=== PATIENT | female | born 1955 | race Caucasian/White ===

== ENCOUNTER → 2020-04-17 16:35 | Outpatient (CLI) | payer BC, SELFPAY ==
--- NOTE | ~2020-04-17 | MM_ITS ---
EXAMINATION: MM screening kristen BI w ashlie HISTORY: Screening mammogram TECHNIQUE: Craniocaudal and mediolateral oblique 3-D tomosynthesis images were obtained and synthetic 2-D images were generated. CAD analysis was submitted and interpreted. COMPARISON: 07/26/2014 bilateral digital screening mammogram BREAST PARENCHYMAL COMPOSITION: The breasts are almost entirely fatty. FINDINGS: A focal area of architectural distortion is noted posteriorly in the outer mid left breast (craniocaudal Tomosynthesis image 31/84 and MLO Tomosynthesis image 22/91). Diagnostic left mammogram is recommended, with sonographic correlation. There is a 3 mm rounded opacity at mid depth in the lower mid right breast near 6:00 position (cranio caudal Tomosynthesis image 15/80 and MLO Tomosynthesis image 16/85). Diagnostic right mammogram and t argeted right breast ultrasound examination are recommended. IMPRESSION: 1. 3 mm right breast mass near 6:00 position and outer mid left breast architectural distortion 2. Bilateral diagnostic mammography and ultrasound examination are recommended. BI-RADS Category 0: Incomplete: Needs additional imaging evaluation. Reviewed, dictated and finalized at location B. CHISE SPECIALIST IMPRESSION: 1. 3 mm right breast mass near 6:00 position and outer mid left breast architec tural distortion 2. Bilateral diagnostic mammography and ultrasound examination are recommended. BI-RADS Category 0: Incomplete: Needs additional imaging evaluation.
== END ==
PROVIDERS: PCP Family Medicine; Visit Provider Nurse Practitioner Obstetrics & Gynecology
DX: Z12.31 Encounter for screening mammogram for malignant neoplasm of breast (principal); R92.8 Other abnormal and inconclusive findings on diagnostic imaging of breast
CPT/HCPCS: 77063; 77067

== ENCOUNTER → 2020-05-14 09:49 | Outpatient (CLI) | payer BC, SELFPAY ==
--- NOTE | ~2020-05-14 | MMUS_ITS ---
EXAMINATION: MM diagnostic mammo BI, US breast BI limited HISTORY: Right breast mass and left breast architectural distortion on screening mammogram TECHNIQUE: Additional 3-D tomosynthesis images of the breasts were performed and synthetic 2-D images were generated. CAD analysis was submitted and interpreted. High resolution limited bilateral breast ultrasound was performed. COMPARISON: 04/17/2020, 07/26/2014, 09/09/2012 FINDINGS: MAMMOGRAPHIC FINDINGS: Left breast: There is persistent architectural distortion in the middle/posterior third of the lower- outer breast at the 3:00 location 7 cm from the nipple best appreciated on craniocaudal tomosynthesis image 28/85. Right breast: There is a 3 mm round equal density circumscribed mass in the middle third of the lower -outer breast at the 7:00 location 4 cm from the nipple. ULTRASOUND: Left breast: No sonographic correlate is identified for the left breast architectural distortion Right breast: There is a 1.8 x 1.1 cm irregular, parallel, hypoechoic mass with posterior acoustic sh adowing and internal vascularity at the 7:00 location 3 cm from the nipple. In addition there is a 3 mm cyst corresponding to the mammographically detected mass. IMPRESSION: 1. Suspicious sonographically detected right breast mass, ultrasound-guided biopsy recommended. 2. Left breast architectural distortion, tomosynthesis guided biopsy is recommended. BI-RADS category 4, suspicious findings. Reviewed, dictated and finalized at location A. ING CLERK IMPRESSION: 1. Suspicious sonographically detected right breast mass, ultrasound-guided bio psy recommended. 2. Left breast architectural distortion, tomosynthesis guided biopsy is recomme nded. BI-RADS category 4, suspicious findings.
== END ==
PROVIDERS: PCP Family Medicine; Visit Provider Nurse Practitioner Obstetrics & Gynecology
DX: N63.25 Unspecified lump in the left breast, overlapping quadrants (principal); N63.15 Unspecified lump in the right breast, overlapping quadrants
CPT/HCPCS: 76642; 77066

== ENCOUNTER 2020-05-14 14:30 | Outpatient (RCR) | payer BC, SELFPAY ==
--- NOTE | 2020-04-18 16:21 | PTOPEVAL ---
INITIAL PHYSICAL THERAPY EVALUATION and PLAN OF CARE Thank you for referring Mireya Jackson to [facility].? Mireya is scheduled to be seen for physical therapy? 1x/week for 6 weeks. Please review, sign, date and return this plan of care GUERO. I agree with and certify that the following plan of care is medically necessary. Referring Physician Date Admitting Provider: Attending Provider: Yudith Bernal, FINAL EXPENSE AGENT Referring Provider: *PT Outpatient Evaluation Start: 04/18/20 15:03 Freq: Status: Active Protocol: Document 04/18/20 15:00 ROBI (Rec: 04/18/20 16:20 ROBI [id number]) Therapy Assessment Status Assessment Status Assessment Status Evaluation Outpatient Past Medical History Past Medical History Source of Past Medical History Patient Musculoskeletal History Hx Fractures Yes: ORIF L humerus Reproductive History Hx Tubal Ligation Yes Evaluation Information Problem Diagnosis cystocele, rectocele Onset last couple of months Subjective Information Mireya reports feeling Query Text:As Reported By Patient/ increase protruding sensation Family in the vaginal region - that comes and goes - usually worse in standing. Prior Level of Function Activity Level (Last 3 Months) Occupation retired - manager mall Hand Dominance Right Medications Home Meds (Include: OTC, RX, Vitamins, just takes vitamins, calcium Herbals, Dose, Route,and Frequency) Query Text:Home Med Entries Will No Longer Recall From Past Visits. Home Meds Must Be Re-entered With Each Visit. Pain Assessment Timing of Pain Assessment Timing of Pain Assessment Assessment Self Report Self Report Pain Level 0 Pain Score Pain Score 0: Self Report Cervical and Lumbar ROM Lumbar ROM Lumbar ROM WNL Lumbar Comments equal SIJ mobility with trunk flexion Lower Extremity Range of Motion General Lower Extremity Range of Motion Reason Not Measured WNL/Left,WNL/Right Gross Lower Extremity Range of Motion for bilat hip ROM Comments Lower Extremity Muscle Strength Testing General Lower Extremity Strength Reason Not Measured WNL/Left,WNL/Right Gross Lower Extremity Strength for bilat hip strength testing in sitting Posture Posture Standing Position Posture Evaluation View posterior, anterior, lateral Head/C-Spine Posture Forward Head Thoracic Spine Posture Neutral Lumbar Spine Posture Neutral Scapula Posture (L) Neutral,(R) Neutral Pelvis Posture Neutral Weight Distribution
--- NOTE | 2020-05-07 09:21 | PCPTNOTE ---
Patient called & cancelled scheduled appointment this date due to having to watch grandchildren.
--- NOTE | 2020-05-21 09:34 | PCPTNOTE ---
Patient called & cancelled scheduled appointment this date due to having another appointment.
--- NOTE | 2020-05-28 09:18 | PCPTNOTE ---
Patient called & cancelled scheduled appointment this date due to decreased insurance coverage - unable to afford PT.
--- NOTE | 2020-05-28 09:19 | PCPTNOTE ---
PHYSICAL THERAPY DISCHARGE SUMMARY Admitting Provider: Attending Provider: Yudith Bernal, HANDLE BENDER Patient:Mireya Jackson Date of :1955 Mireya has had to cancel her remaining appointment due to decreased insurance coverage. Mireya?s initial visit was on 04/18/2020 15:00 and shehad a total of 3 visits. A follow up phone call was made this date to see how she was doing and to review and update her HEP. She has made good progress towards goals set and she was encouraged to continue with her HEP on a regular basis. She will be discharged from physical therapy at this time. Thank you for referring Mireya to [facility]. Please review, sign, date and return this discharge summary GUERO. I have been updated about Mireya's current status and I agree with discharge from the above service at this time. Referring Physician Date
== END 2020-07-08 08:26 | disposition home or self-care (01) ==
LOC: ANHHIPT 14:30
PROVIDERS: PCP Family Medicine; Visit Provider Nurse Practitioner Obstetrics & Gynecology
DX: N81.12 Cystocele, lateral (principal); N81.6 Rectocele
CPT/HCPCS: 97110; 97161

== ENCOUNTER 2020-07-01 10:36 | Outpatient (CLI) | payer BC, SELFPAY ==
--- NOTE | ~2020-07-01 | US_ITS ---
EXAMINATION: US breast RT limited HISTORY: Patient presents for ultrasound-guided biopsy of a right breast mass. TECHNIQUE: Limited right breast ultrasound is performed. FINDINGS: With real-time scanning, no definite right breast mass is identified for targeting with ult rasound guided biopsy. The area described on recent diagnostic evaluation could reflect shadowing lig amentous structures. This was discussed with the patient and short-term interval follow-up was agreed upon. IMPRESSION: 1. Probably benign right breast findings. Follow-up right diagnostic mammogram and ultrasound in six months are recommended. 2. Patient was also advised that tomosynthesis guided left breast biopsy remains outstanding and shou ld still be performed. BI-RADS category 3, probably benign findings. Reviewed, dictated and finalized at location A. SONIC ENGINEER IMPRESSION: 1. Probably benign right breast findings. Follow-up right diagnostic mammogram and ultrasound in six months are recommended. 2. Patient was also advised that tomosynthesis guided left breast biopsy remain s outstanding and should still be performed. BI-RADS category 3, probably benign findings.
== END 2020-07-01 10:37 | disposition home or self-care (01) ==
PROVIDERS: PCP Family Medicine
DX: R92.8 Other abnormal and inconclusive findings on diagnostic imaging of breast (principal)
CPT/HCPCS: 76642

== ENCOUNTER → 2021-06-01 15:08 | Outpatient (CLI) | payer MEDICARE, SELFPAY ==
--- NOTE | ~2021-06-01 | US_ITS ---
EXAMINATION: US thyroid EXAM DATE: 06/01/2021 15:35 INDICATION: E04.1 - Nontoxic single thyroid nodule. TECHNIQUE: Multiple grayscale and Doppler images of the thyroid were obtained (by a technologist who performed the scan) and subsequently reviewed. Individual nodules and recommendations may be reporte d in accordance with TI-RADS system as designated by the 2017 ACR White Paper TI-RADS committee. The re is no prior study for comparison. FINDINGS: The right thyroid lobe measures 4.3 x 1.2 x 1.3 cm, the left measuring 3.9 x 1.6 x 1.0 cm. Mildly dif fusely heterogeneous thyroid echogenicity. There is left thyroid lobe nodule, solid component measured at 1.2 x 1.3 x 1.1 cm, predominantly rachelle d (2 points), hypoechoic (2 points), taller than wide (3 points), smooth well defined margin, without echogenic foci, category TR5 for this nodule. There is a 3 mm cyst in the right thyroid lobe. IMPRESSION: Left thyroid lobe category TR 5 nodule, large enough to recommend ultrasound-guided FNA. Reviewed, dictated and finalized at location A. NAL CLERK IMPRESSION: Left thyroid lobe category TR 5 nodule, large enough to recommend u ltrasound-guided FNA.
== END ==
PROVIDERS: PCP Family Medicine; Visit Provider Nurse Practitioner Family
DX: E04.1 Nontoxic single thyroid nodule (principal)
CPT/HCPCS: 76536

== ENCOUNTER 2021-06-12 12:52 | Outpatient (CLI) | payer MEDICARE, SELFPAY ==
--- NOTE | ~2021-06-12 | US_ITS ---
EXAMINATION: US FNA w image guidance DATE: 06/12/2021 14:13 INDICATION: Left thyroid nodule TECHNIQUE: A time-out was performed to verify the patient's name, date of , and procedure to be performed . The procedure and its benefits and risks were discussed with the patient. Risks specifically discus sed included bleeding and infection. The patient understood the risks and agreed to proceed. The neck was prepped and draped in the usual sterile manner. 3 mL 1% lidocaine was used for local anesthesia . 6 passes were made with a 25G needle into the lesion. Appropriate needle location was documented with continuous sonographic guidance. The specimens were passed to the cytotechnologist supervisor in the room. A sterile bandage was applied. There were no immediate complications. FINDINGS: Grayscale ultrasound images demonstrate biopsy needles advanced into a 1.8 cm TI RADS 5 left thyroid nodule. IMPRESSION: 1. Successful ultrasound-guided fine needle aspiration of the 1.8 cm TI RADS 5 left thyroid nodule o f concern. Reviewed, dictated and finalized at location A. RVISOR MATRIX IMPRESSION: 1. Successful ultrasound-guided fine needle aspiration of the 1.8 cm TI RADS 5 left thyroid nodule of concern.
== END 2021-06-12 12:53 | disposition home or self-care (01) ==
LOC: ANHIMG 12:53
PROVIDERS: PCP Family Medicine; Visit Provider Otolaryngology
DX: E04.1 Nontoxic single thyroid nodule (principal)
CPT/HCPCS: 10005; 88173; 88305

== ENCOUNTER → 2021-11-18 13:25 | Outpatient (CLI) | payer MEDICARE, SELFPAY ==
--- NOTE | ~2021-11-18 | XR_ITS ---
EXAMINATION: XR lumbar spine min 4V DATE: 11/18/2021 13:56 INDICATION: Low back pain TECHNIQUE: Anteroposterior, lateral, and bilateral oblique views of the lumbar spine, and cone-down l ateral view of the lumbosacral junction were obtained. COMPARISON: None. FINDINGS: Bone alignment is normal. There is no fracture. The vertebral body heights and intervertebr al disc spaces are maintained. Small degenerative osteophytes project from the anterior endplates of multiple vertebral bodies. There is moderate facet osteoarthritis of the lower lumbar spine. IMPRESSION: 1. Mild lumbar spondylosis. Reviewed, dictated and finalized at location A. IMPRESSION: 1. Mild lumbar spondylosis.
--- NOTE | ~2021-11-18 | XR_ITS ---
XR hip RT min 3V w AP pelvis DATE: 11/18/2021 13:56 INDICATION: Right hip pain, chronic TECHNIQUE: AP pelvis. AP and lateral views of right hip COMPARISON: None FINDINGS: Moderate right hip osteoid arthritis including joint space narrowing. Mild left hip osteoar thritic arthritis.. No fracture or dislocation, avascular necrosis or bone destruction of the right hip. The pubic symphysis and sacroiliac joints are intact. No pelvic fracture or bone destruction. IMPRESSION: Bilateral hip osteoarthritis, moderate on the right, mild on the left Reviewed, dictated and finalized at location A. IMPRESSION: Bilateral hip osteoarthritis, moderate on the right, mild on the le ft
== END ==
PROVIDERS: PCP Family Medicine; Visit Provider Family Medicine
DX: M54.41 Lumbago with sciatica, right side (principal); G89.29 Other chronic pain; M47.896 Other spondylosis, lumbar region; M16.0 Bilateral primary osteoarthritis of hip
CPT/HCPCS: 72110; 73502

== ENCOUNTER 2021-11-24 08:21 | Outpatient (CLI) | payer MEDICARE, SELFPAY ==
--- NOTE | 2021-11-24 08:38 | ECHO_ITS ---
Patient Info Name: Mireya Jackson Age: 66 years : 1955 Gender: Female Ht: 66 in Wt: 210 lbs BSA: 2.14 m2 HR: 61 bpm BP: 138 / 86 mmHg Technical Quality: Fair Exam Date: 11/24/2021 9:17 AM Exam Location: [facility] Patient Status: Outpatient Admit Date: 11/24/2021 Staff Ordering Physician: Lv Callejas MD Rubber Goods Finisher: Roxanne Min RDCS Attending Provider: Lv Callejas MD Referring Physician: Britta FLOREZ; Exam Type: CA echo doppler color flow Study Info Indications R07.89 - Other chest pain Complete two-dimensional, color flow and Doppler transthoracic echocardiogram is performed. Summary 1. Complete two-dimensional, color flow and Doppler transthoracic echocardiogram is performed. 2. Left ventricular chamber dimension is normal. 3. Left ventricular systolic function is normal, estimated at 60-65%. 4. The left ventricular diastolic function is abnormal. 5. E/e' 10 is mildly elevated. 6. Global longitudinal strain is normal at -21.0%. 7. Left atrial chamber dimension is mildly enlarged. 8. No pulmonary hypertension, estimated pulmonary arterial systolic pressure is 30 mmHg. Left Ventricle E/e' 10 is mildly elevated. Global longitudinal strain is normal at -21.0%. Left ventricular chamber dimension is normal. Left ventricular systolic function is normal, estimated at 60-65%. The left ventricular diastolic function is abnormal. Right Ventricle Right ventricular chamber dimension is normal. Right ventricular systolic function is normal. Left Atria Left atrial chamber dimension is mildly enlarged. Right Atria Right atrial chamber dimension is normal. Aortic Valve The aortic valve is trileaflet. There is no aortic valve stenosis. There is no aortic valve regurgitation. Pulmonic Valve There is no pulmonic regurgitation. Mitral Valve There is no mitral valve stenosis. There is no mitral valve regurgitation. Tricuspid Valve There is no tricuspid valve regurgitation. No pulmonary hypertension, estimated pulmonary arterial systolic pressure is 30 mmHg. Pericardium/Pleural There is no pericardial effusion. Inferior Vena Cava Normal inferior vena cava with >50% collapse upon inspiration consistent with normal right atrial pressure, 5 mmHg. Aorta The aortic root size at the sinus of Valsalva is normal. Left Ventricular Outflow Tract Name Value Normal LVOT 2D LVOT Diameter 2.0 cm LVOT Doppler LVOT Peak Gradient 4 mmHg LVOT Mean Gradient 2 mmHg LVOT VTI 23 cm LVOT VTI/AV VTI Ratio 0.9 LVOT Stroke Volume 71 ml LVOT CO 4.5 l/min LVOT CI 2.1 l/min/m2 Pulmonic Valve Name Value Normal RVOT Doppler
--- NOTE | 2021-11-24 08:39 | EST_ITS ---
Patient Info Name: Mireya Jackson Age: 66 years : 1955 Gender: Female Ht: 66 in Wt: 210 lbs BSA: 2.14 m2 HR: 58 bpm BP: 146 / 86 mmHg Heart Rhythm: Sinus Rhythm Exam Date: 11/24/2021 10:41 AM Exam Location: [facility] Patient Status: Outpatient Admit Date: 11/24/2021 Staff Ordering Physician: Lv Callejas MD Attending Provider: Lv Callejas MD Exercise Technologist: Yoli Sanchez CT Exercise Physician: Se Medina DO Exam Type: CA stress test treadmill Study Info Indications R07.9 - Chest pain, unspecified A treadmill exercise stress test was performed. Summary 1. 1. Negative David exercise stress test for ischemic ST changes by ECG criteria. 2. 1. Good functional capacity, achieving 7 METs of workload. 3. 3. Baseline hypertension. 4. 4. Appropriate HR response to exercise. 5. 5. Appropriate HR recovery at 1 minute post exercise. 6. 6. No imaging with stress testing. Protocol: David Stress ECG Details Stage: REST Duration (min): 1 min : 2 sec Speed (mph): 0.0 Grade (%): 0 HR (bpm): 62 SBP (mmHg): 146 DBP (mmHg): 86 METS: --- Stage: REST Duration (min): 6 min : 32 sec Speed (mph): 0.0 Grade (%): 0 HR (bpm): 67 SBP (mmHg): 146 DBP (mmHg): 86 METS: --- Stage: STAGE 1 Duration (min): 1 min : 0 sec Speed (mph): 1.7 Grade (%): 10 HR (bpm): 104 SBP (mmHg): 146 DBP (mmHg): 86 METS: --- Stage: STAGE 1 Duration (min): 2 min : 0 sec Speed (mph): 1.7 Grade (%): 10 HR (bpm): 115 SBP (mmHg): 146 DBP (mmHg): 86 METS: --- Stage: STAGE 1 Duration (min): 3 min : 0 sec Speed (mph): 1.7 Grade (%): 10 HR (bpm): 115 SBP (mmHg): 173 DBP (mmHg): 58 METS: --- Stage: STAGE 2 Duration (min): 1 min : 0 sec Speed (mph): 2.5 Grade (%): 12 HR (bpm): 131 SBP (mmHg): 173 DBP (mmHg): 58 METS: --- Stage: STAGE 2 Duration (min): 2 min : 0 sec Speed (mph): 2.5 Grade (%): 12 HR (bpm): 144 SBP (mmHg): 208 DBP (mmHg): 66 METS: --- Stage: STAGE 2 Duration (min): 3 min : 0 sec Speed (mph): 2.5 Grade (%): 12 HR (bpm): 150 SBP (mmHg): 208 DBP (mmHg): 66 METS: --- Stage: RECOVERY Duration (min): 0 min : 59 sec Speed (mph): 0.0 Grade (%): 0 HR (bpm): 122 SBP (mmHg): 179 DBP (mmHg): 74 METS: --- Stage: RECOVERY Duration (min): 1 min : 13 sec Speed (mph): 0.0 Grade (%): 0 HR (bpm): 111 SBP (mmHg): 179 DBP (mmHg): 74 METS: --- Rest HR: 67 bpm Peak HR: 150 bpm Rest Sys BP: 146 mmHg Peak Sys BP: 208 mmHg Max Pred HR: 155 bpm % Max Pred HR: 97 % Target HR: 132 bpm Max RPP: 31,200 bpm*mmHg Pate Score: -1 Termination Reason: Reached target heart rate or workload Cardiac Symptoms: Shortness of breath Max ST Seg Deviation: 1.40 mm Total Time: 6 min : 0 sec Rest Vera BP: 86 mmHg Peak Vera BP: 66 mmHg Angina
--- NOTE | 2021-11-24 08:39 | ECG_ITS ---
Measurements Intervals [place] Rate: 56 P: 40 CT: 163 QRS: 2 QRSD: 94 T: 89 QT: 386 QTc: 374 Interpretive Statements SINUS BRADYCARDIA NO PREVIOUS ECG AVAILABLE FOR COMPARISON Electronically Signed On 11-24-2021 10:56:25 CDT by Jimenez Hewitt M.D.
== END 2021-11-24 08:22 | disposition home or self-care (01) ==
LOC: ANHCARD 08:29
PROVIDERS: PCP Family Medicine; Visit Provider Family Medicine
DX: R07.89 Other chest pain (principal); R00.1 Bradycardia, unspecified
CPT/HCPCS: 93005; 93017; 93306

== ENCOUNTER → 2024-02-21 16:24 | Outpatient (REF) | payer MEDICARE, SELFPAY | LOC: ANHLAB 16:24 | PROVIDERS: PCP Family Medicine; Visit Provider Plastic Surgery | DX: C44.311 Basal cell carcinoma of skin of nose (principal) | CPT/HCPCS: 88305 ==